=== PATIENT | male | born 1955 | race Caucasian/White ===

== ENCOUNTER → 2017-02-13 | Outpatient (REF) | payer BC ==
[2017-02-13 13:32] LABS: PERCENT SATURATION 39.9 % (19.7-37.4); URIC ACID 6.5 MG/DL (3.5-7.2)
== END ==
LOC: M LAB REF 12:30
PROVIDERS: ATTEND Internal Medicine
DX: R79.9 Abnormal finding of blood chemistry, unspecified (principal)

== ENCOUNTER 2017-11-28 03:49 | Emergency (ER) | payer BC ==
[2017-11-28] MEDS: OXYMETAZOLINE NASAL SPRAY (AFRIN) (06:08)
== END 2017-11-28 07:02 | disposition home or self-care (01) ==
LOC: M ED 03:49
DX: R04.0 Epistaxis (principal); I10 Essential (primary) hypertension; Z79.899 Other long term (current) drug therapy
CPT/HCPCS: 99283

== ENCOUNTER → 2022-02-08 | Outpatient (REF) | payer BC ==
[~2022-02-08] MED LIST: AMLO1TAB24 PO; LOTR10CA2 PO; ZYLO300T6 PO
== END ==
LOC: M LAB REF 12:33
PROVIDERS: ATTEND Internal Medicine
DX: I10 Essential (primary) hypertension (principal)

== ENCOUNTER → 2023-11-03 | Outpatient (REF) | payer MEDICARE | LOC: M LAB REF 12:23 | PROVIDERS: ATTEND Internal Medicine | DX: E79.0 Hyperuricemia without signs of inflammatory arthritis and tophaceous disease (principal) ==

== ENCOUNTER 2024-10-16 09:38 | Day surgery (SDC) | payer MEDICARE ==
[~2024-10-16] VITALS: Ht 170.2 cm; Wt 102.1 kg
[~2024-10-16 09:38] MED LIST changes: +ALLO10TA PO
[2024-10-16] MEDS ORDERED: LIDOCAINE 2% 100MG/5ML SDV (FOR ANES.) As Ordered ONE (09:39)
[2024-10-16] MEDS ORDERED: propofoL 200 MG/20 ML VIAL As Ordered ONE (09:40)
[2024-10-16 11:35] VITALS: BP 103/63; O2SAT 96
== END 2024-10-16 11:44 | disposition home or self-care (01) ==
LOC: M OPP 09:38
PROVIDERS: ATTEND Surgery
DX: R19.5 Other fecal abnormalities (principal); K57.30 Diverticulosis of large intestine without perforation or abscess without bleeding; K64.9 Unspecified hemorrhoids; I10 Essential (primary) hypertension; M10.9 Gout, unspecified; Z79.899 Other long term (current) drug therapy

== ENCOUNTER → 2025-02-17 | Outpatient (CLI) | payer MEDICARE ==
[~2025-02-17] MED LIST changes: +ISOVUE-370 76% 100ML VIAL ONE
== END ==
LOC: M PLAIMG 08:39
PROVIDERS: ATTEND Physician Assistant Medical
DX: K76.0 Fatty (change of) liver, not elsewhere classified (principal); K57.30 Diverticulosis of large intestine without perforation or abscess without bleeding; K42.9 Umbilical hernia without obstruction or gangrene
CPT/HCPCS: 74170; Q9967